=== PATIENT | male | born 1965 | race Caucasian/White ===

== ENCOUNTER → 2024-08-05 | Outpatient (CLI) | payer MEDICAID, OTHER | LOC: M OUTALCOH 07:46 | PROVIDERS: ATTEND Psychiatry & Neurology Psychiatry | DX: F10.20 Alcohol dependence, uncomplicated (principal) ==

== ENCOUNTER 2024-08-20 16:00 | Outpatient (RCR) | payer OTHER | END 2024-08-21 | LOC: M OUTALCOH 16:00 | PROVIDERS: ATTEND Psychiatry & Neurology Psychiatry | DX: F10.20 Alcohol dependence, uncomplicated (principal) ==

== ENCOUNTER 2024-11-01 09:56 | Outpatient (RCR) | payer OTHER | END 2024-11-21 | LOC: M OUTALCOH 09:56 | PROVIDERS: ATTEND Psychiatry & Neurology Psychiatry | DX: F10.20 Alcohol dependence, uncomplicated (principal) ==